=== PATIENT | male | born 1940 | race Caucasian/White ===

== ENCOUNTER 2016-08-07 10:19 | Outpatient (CLI) ==
[2016-01-21 18:58] VITALS: BMI 34.2
--- NOTE | 2016-08-07 11:19 | DI ---
EXAM: Three views of the left shoulder. History: Left shoulder pain. Findings: No acute fracture or dislocation. Mild narrowing of the left AC joint and left glenohume ral joint. Impression: No acute osseous abnormality. Mild arthritis.
--- NOTE | 2016-08-07 11:19 | US ---
EXAM: Left axillary ultrasound. History: Left axillary and shoulder pain. Technique: Multiple sonographic images through the left axilla were obtained. Color duplex Doppler was used to interrogate vascular flow. Findings: No masses, cysts or fluid collections are identified. Impression: No sonographic abnormalities.
== END 2016-08-07 10:20 | disposition home or self-care (01) ==
LOC: RAD 10:19
PROVIDERS: ATTEND Family Medicine
DX: M25.512 Pain in left shoulder (principal)
CPT/HCPCS: 76882

== ENCOUNTER 2017-10-17 08:50 | Outpatient (POV) | payer OTHER ==
[2016-01-21 18:58] VITALS: BMI 34.2
== END 2017-10-17 17:00 ==
LOC: OUTPT 08:50
PROVIDERS: ATTEND Otolaryngology
DX: H91.90 Unspecified hearing loss, unspecified ear (principal)

== ENCOUNTER 2018-06-28 19:50 | Emergency (ER) | payer OTHER ==
[2018-06-28 19:57] VITALS: TEMP 98.9; BMI 34.0
[2018-06-28] MEDS ORDERED: ATIVAN IM STA (20:18)
[2018-06-28] MEDS ORDERED: SODIUM CHLORIDE 1,000 ML IV STA (20:19)
--- NOTE | 2018-06-28 20:20 | ED.PDOC ---
General ED Provider: Dr. MANSI ARROYO MD Chief Complaint: Hypertension Stated Complaint: increase heart rate, hypertension Time Seen by Physician: 20:13 Mode of Arrival: Walk-In Information Source: Patient Exam Limitations: No limitations Primary Care Provider: MANSI ROGERS Nursing and Triage Documentation Reviewed and Agree: Yes Does patient meet sepsis criteria?: No If yes, has appropriate treatment been initiated?: Yes System Inflammatory Response Syndrome: Not Applicable Sepsis Protocol: For patient's 13 years and over: Temp is 96.8 and below OR 101 and greater Pulse >90 BPM Resp >20/minute Acutely Altered Mental Status Are patient's symptoms suggestive of a new infection, such as: -Pneumonia -Skin, Soft Tissue -Endocarditis -UTI -Bone, Joint Infection -Implantable Device -Acute Abdominal Infection -Wound Infection -Meningitis -Blood Stream Catheter Infection -Unknown Review of Systems - Review Of Systems Constitutional: Reports: Other (little lightheadedness) Eyes: Reports: No symptoms Ears, Nose, Mouth, Throat: Reports: No symptoms Respiratory: Reports: No symptoms Cardiac: Reports: No symptoms GI: Reports: No symptoms : Reports: No symptoms Musculoskeletal: Reports: No symptoms Skin: Reports: No symptoms Neurological: Reports: No symptoms Endocrine: Reports: No symptoms Hematologic/Lymphatic: Reports: No symptoms All Other Systems: Reviewed and Negative Past Medical History - Past Medical History Previously Healthy: No Endocrine: Reports: Dyslipidemia Cardiovascular: Reports: Hypertension Respiratory: Reports: None Hematological: Reports: None Gastrointestinal: Reports: GERD Genitourinary: Reports: None Neuro/Psych: Reports: None Musculoskeletal: Reports: None Cancer: Reports: None - Surgical History General Surgical History: Reports: Unknown - Family History Family History: Reports: Unknown - Social History Smoking Status: Former smoker Hx Substance Use: No Alcohol Screening: Occasionally - Immunizations Tetanus Shot up to Date: No (unknown) Physical Exam - Physical Exam Appearance: Obese Ill-appearing: None Pain Distress: None Eyes: BLOSSOM, EOMI, Conjunctiva clear ENT: Ears normal, Nose normal, Oropharynx normal Respiratory: Airway patent, Breath sounds clear, Breath sounds equal, Respirations nonlabored Cardiovascular: Tachycardia GI/: Soft, Nontender, No masses, Bowel sounds normal, No Organomegaly Musculoskeletal: Normal strength, ROM intact, No edema, No calf tenderness Skin: Warm, Dry, Normal color Neurological: Sensation intact, Motor intact, Reflexes intact, Cranial nerves intact, Alert, Oriented Psychiatric: Affect appropriate, Mood appropriate Critical Care Note - Critical Care Note Total Time (mins): 0 Course - Course Hematology/Chemistry: 06/28/18 20:39 06/28/18 20:39 Orders, Labs, Meds: Lab Review 06/28/18 06/28/18 20:39 20:39 WBC 11.34 H RBC 4.89 Hgb 15.5 Hct 44.4 MCV 90.8 MCH 31.7 H MCHC 34.9 RDW Coeff of Glynn 13.3 Plt Count 238 Immature Gran % (Auto) 0.4 Neut % (Auto) 74.9 Lymph % (Auto) 13.4 [place] % (Auto) 8.5 Eos % (Auto) 1.9 Baso % (Auto) 0.9 Immature Gran # (Auto) 0.0 Neut # (Auto) 8.5 H Lymph # (Auto) 1.5 [place] # (Auto) 1.0 Eos # (Auto) 0.2 Baso # (Auto) 0.1 Sodium 139.9 Potassium 4.03 Chloride 105.7 Carbon Dioxide 25.5 Anion Gap 12.73 BUN 18.3 Creatinine 1.03 Estimated GFR (MDRD) 70.00 BUN/Creatinine Ratio 17.76 Glucose 118.5 H Calcium 9.72 Total Bilirubin 0.63 AST 36.1 ALT 30.8 Alkaline Phosphatase 67.8 Troponin I < 0.012 Total Protein 7.67 Albumin 4.87 Globulin 2.80 Albumin/Globulin Ratio 1.73 Orders Category Date Time Status EKG-(ED ONLY) Stat CARDIO 06/28/18 20:18 Completed IV ACCESS ONCE CARE 06/28/18 20:19 Active IV [ED IV/MEDIPORT/POWERPORT] .ONCE EMERGENCY 06/28/18 20:37 Active CBC W/ AUTO DIFF Stat LAB 06/28/18 20:39 Completed COMPREHENSIVE METABOLIC PANEL Stat LAB 06/28/18 20:39 Completed TROPONIN I Stat LAB 06/28/18 20:39 Completed 0.9 % Sodium Chloride [Saline Flush] MEDS 06/28/18 20:37 Ordered 1 syr IVF PRN PRN Lorazepam [Ativan] MEDS 06/28/18 20:18 Discontinued 1 mg IM ONCE STA Lorazepam [Ativan] MEDS 06/28/18 20:37 Discontinued 1 mg IVP ONCE STA Sodium Chloride 0.9% [Sodium Chloride] 1,000 ml MEDS 06/28/18 20:19 Discontinued IV BOLUS Medications Generic Name Dose Route Start Last Admin Trade Name Freq PRN Reason Stop Dose Admin Sodium Chloride 1 syr 06/28/18 20:37 06/28/18 20:53 Saline Flush IVF 1 syr PRN PRN Administration To flush IV Discontinued Medications Generic Name Dose Route Start Last Admin Trade Name Freq PRN Reason Stop Dose Admin Sodium Chloride 1,000 mls @ 1,000 mls/hr 06/28/18 20:19 06/28/18 20:51 Sodium Chloride IV 06/28/18 21:18 1,000 mls/hr BOLUS STA Administration Lorazepam 1 mg 06/28/18 20:18 06/28/18 21:13 Ativan IM 06/28/18 20:19 Not Given ONCE STA Lorazepam 1 mg 06/28/18 20:37 06/28/18 20:55 Ativan IVP 06/28/18 20:38 1 mg ONCE STA Administration Vital Signs: Temp Pulse Resp BP Pulse Ox 06/28/18 21:27 96 H 17 124/63 95 06/28/18 20:40 107 H 22 129/70 95 06/28/18 19:52 98.9 F 120 H 20 168/82 H 93 L MY Risk Score MY Risk Score: Risk Score Odds of by 30D 0 0.1 (0.1-0.2) 1 0.3 (0.2-0.3) 2 0.4 (0.3-0.5) 3 0.7 (0.6-0.9) 4 1.2 (1.0-1.5) 5 2.2 (1.9-2.6) 6 3.0 (2.5-3.6) 7 4.8 (3.8-6.1) Departure - Departure Time of Disposition: 21:55 Disposition: HOME SELF-CARE Discharge Problem: Dehydration after exertion Instructions: Dehydration (ED) Condition: Good Pt referred to PMD for follow-up: Yes IPMP verified?: No Allergies/Adverse Reactions: Allergies No Known Allergies Allergy (Verified 01/21/16 18:57) Home Medications: Ambulatory Orders Aspirin [Aspirin Chewable] 81 mg PO DAILYWM 06/01/14 Lovastatin [Mevacor] 20 mg PO DAILY 06/01/14 Multivitamin 1 cap PO DAILY 06/01/14 Transfer Form Completed: No Disposition Discussed With: Patient, Family
[2018-06-28] MEDS ORDERED: ATIVAN IVP STA (20:37)
[2018-06-28 21:28] VITALS: BP 124/63
== END 2018-06-28 22:00 | disposition home or self-care (01) ==
LOC: ED 19:50
DX: E86.0 Dehydration (principal); I10 Essential (primary) hypertension; R42 Dizziness and giddiness; E78.5 Hyperlipidemia, unspecified
CPT/HCPCS: 36415; 80053; 84484; 85025; 93005; 93010; 96374; 96375; 99283